=== PATIENT | female | born 1995 | race Two or more races ===

== ENCOUNTER 2021-09-24 10:08 | Emergency (ER) | payer OTHER ==
[~2021-09-24] VITALS: Ht 144.8 cm; Wt 62.6 kg
== END 2021-09-24 16:02 | disposition home or self-care (01) ==
LOC: ER 10:08
DX: R10.32 Left lower quadrant pain (principal); K51.50 Left sided colitis without complications

== ENCOUNTER 2023-03-04 18:18 | Emergency (ER) | payer OTHER ==
[~2023-03-04] VITALS: Ht 149.9 cm; Wt 65.8 kg
== END 2023-03-04 22:59 | disposition home or self-care (01) ==
LOC: ER 18:18
DX: L50.8 Other urticaria (principal); Z20.822 Contact with and (suspected) exposure to COVID-19; Z91.011 Allergy to milk products

== ENCOUNTER 2023-03-14 13:39 | Emergency (ER) | payer OTHER ==
[~2023-03-14] VITALS: Ht 144.8 cm; Wt 66.2 kg
[2023-03-14] MEDS ORDERED: ALL DAY ALLERGY10 M3 (14:24)
[2023-03-14] MEDS ORDERED: PHENAZOPYRIDIN200 MG (14:24)
[2023-03-14] MEDS ORDERED: DICLOFENAC SODI75 MG PO (14:55)
== END 2023-03-14 15:39 | disposition home or self-care (01) ==
LOC: ER 13:39
DX: M94.0 Chondrocostal junction syndrome [Tietze] (principal); Z91.011 Allergy to milk products

== ENCOUNTER 2025-02-06 14:06 | Emergency (ER) | payer OTHER ==
[~2025-02-06] VITALS: Ht 144.8 cm; Wt 64.9 kg
[~2025-02-06 14:06] MED LIST: ALL DAY ALLERGY10 M3; DICLOFENAC SODI75 MG PO; PHENAZOPYRIDIN200 MG
[2025-02-06 15:09] VITALS: BP 100/68; O2SAT 100
[2025-02-06] MEDS ORDERED: GUAIFENESIN/DEXTROMETHORPHAN 100MG/10ML BLIST.PACK PO ONE ×2 (15:30→15:35)
[2025-02-06 16:34] LABS: BASO % 0.5 % (0.1-1.2); EOS # 0.40 (0.04-0.54); EOS % 5.2 % (0.7-7.0); LYMPH # 1.99 (1.18-3.74); LYMPH % 25.7 % (19.3-53.1); MEAN PLATELET VOLUME 9.70 fl (9.4-12.4); MONO # 0.65 (0.24-0.82); MONO % 8.4 % (4.7-12.5); NEUT # 4.66 (1.56-6.13); NEUT % 60.1 % (34.0-71.1); RED CELL DISTRIBUTION WIDTH 12.7 % (11.6-14.4)
[2025-02-06 16:43] LABS: COVID-19 AG NEGATIVE (NEGATIVE)
== END 2025-02-06 17:31 | disposition home or self-care (01) ==
LOC: ER 14:06
PROVIDERS: Preventive Medicine Public Health & General Preventive Medicine
DX: J10.1 Influenza due to other identified influenza virus with other respiratory manifestations (principal); R05.9 Cough, unspecified; Z20.822 Contact with and (suspected) exposure to COVID-19; Z91.011 Allergy to milk products

== ENCOUNTER 2025-03-09 05:50 | Emergency (ER) | payer OTHER ==
[~2025-03-09] VITALS: Ht 144.8 cm; Wt 64.9 kg
[2025-03-09] MEDS ORDERED: KETOROLAC TROMETHAMINE 60 MG VIAL IM STA (07:49)
[2025-03-09 08:50] LABS: BASO % 0.7 % (0.1-1.2); EOS # 0.36 (0.04-0.54); EOS % 6.2 % (0.7-7.0); LYMPH # 1.83 (1.18-3.74); LYMPH % 31.5 % (19.3-53.1); MEAN PLATELET VOLUME 9.60 fl (9.4-12.4); MONO # 0.44 (0.24-0.82); MONO % 7.6 % (4.7-12.5); NEUT # 3.13 (1.56-6.13); NEUT % 53.8 % (34.0-71.1); RED CELL DISTRIBUTION WIDTH 13.2 % (11.6-14.4)
[2025-03-09 08:57] LABS: URINE APPEARANCE Clear; URINE BILIRRUBIN Negative (NEGATIVE); URINE BLOOD Negative; URINE COLOR Yellow; URINE GLUCOSE Negative (NEGATIVE); URINE KETONE Negative (NEGATIVE); URINE LEUKOCYTE Negative; URINE NITRATE Negative; URINE PROTEIN Negative (NEGATIVE); URINE UROBILINOGEN 0.2 E.U./dl
[2025-03-09 09:02] LABS: URINE BACTERIA 1475.9 uL (0.0-1933); URINE EPITHELIAL CELLS 19.5 uL (0.0-38.8); URINE RBC 5.8 uL (0.0-20.8); URINE WBC 11.5 uL (0.0-23.2)
[2025-03-09 09:40] LABS: URINE CAST 0.43 uL (0.0-1.40)
[2025-03-09 10:26] LABS: BUN CREA RATIO 11 (7.0-25.0); CREATININE SERUM 0.61 mg/dL (0.55-1.02); GFR 114.40; GLUCOSE FASTING 83 mg/dL (65-100); OSMOLALITY SERUM 280 MOSM/KG (275-295)
[2025-03-09 10:27] LABS: HCG QUANTITATIVE < 1 mUI/mL (1-3)
[2025-03-09] MEDS ORDERED: NORFLEX100MG PO (14:11)
== END 2025-03-09 14:38 | disposition home or self-care (01) ==
LOC: ER 05:50
PROVIDERS: General Practice
DX: R10.2 Pelvic and perineal pain (principal); D25.9 Leiomyoma of uterus, unspecified; Z91.011 Allergy to milk products

== ENCOUNTER 2025-06-25 06:41 | Emergency (ER) | payer OTHER ==
[~2025-06-25] VITALS: Ht 144.8 cm; Wt 61.2 kg
[~2025-06-25 06:41] MED LIST changes: +NORFLEX100MG PO
[2025-06-25] MEDS ORDERED: COZAAR25 MG PO (07:39)
[2025-06-25] MEDS ORDERED: PEPCID AC20 MG PO (07:41)
[2025-06-25] MEDS ORDERED: METRONIDAZOLE500 MG PO (07:41)
[2025-06-25] MEDS ORDERED: KETOROLAC TROMETHAMINE 60 MG VIAL IM ONE ×2 (07:45→08:05)
[2025-06-25] MEDS ORDERED: CEFTRIAXONE SODIUM 1,000 MG VIAL IM ONE (07:45)
[2025-06-25] MEDS ORDERED: CEFTRIAXONE SODIUM 1,000 MG VIAL ONE (08:05)
[2025-06-25 08:32] VITALS: BP 107/74; O2SAT 99
== END 2025-06-25 08:33 | disposition home or self-care (01) ==
LOC: ER 06:42
DX: N76.0 Acute vaginitis (principal); Z91.0110 Allergy to milk products, unspecified